=== PATIENT | female | born 1960 | race African-American/Black ===

== ENCOUNTER 2021-04-24 18:18 | Emergency (ER) | payer MEDICAID ==
[~2021-04-24] VITALS: Ht 170.2 cm; Wt 65.0 kg
[~2021-04-24 18:18] MED LIST: BUPR75TA8 MT; LISI2.5T47 PO
[2021-04-24 18:19] VITALS: BP 141/97
[2021-04-24] MEDS ORDERED: ONDANSETRON 4MG ODT PO ONE (18:45)
[2021-04-24] MEDS ORDERED: MORPHINE SULFATE 4 MG/ML CPJ (NOT FOR IM USE) IV STA (18:56)
[2021-04-24] MEDS ORDERED: ONDANSETRON HCL 4MG/2ML INJ IV STA (18:56)
[2021-04-24] MEDS ORDERED: SODIUM CHLORIDE 0.9% 1,000 ML IV ONE (19:00)
[2021-04-24 19:13] LABS: BASOPHILS % 0.5 % (0.0-2.0); EOSINOPHILS % 0.6 % (0.0-5.0); HEMOGLOBIN. 14.5 g/dL (12.0-16.0); LYMPHOCYTES % 40.3 % (20.0-50.0); MEAN CORPUSCULAR HEMOGLOBIN 28.8 pg (28.0-32.0); MEAN CORPUSCULAR VOLUME 85.4 fL (81.0-99.0); MEAN PLATELET VOLUME 7.6 fl (7.4-10.4); MONOCYTES % 11.2 % (2.0-8.0); NEUTROPHILS % 47.4 % (40.0-76.0); PLATELET 361 x1000/uL (130-400); RED BLOOD CELL COUNT 5.04 mill/uL (4.2-5.4); RED CELL DISTRIBUTION WIDTH 14.7 % (11.6-14.6)
[2021-04-24 19:16] LABS: CHLORIDE 108 mEq/L (98-107)
[2021-04-24 19:19] LABS: PROTHROMBIN TIME 10.9 sec (9.6-11.0)
== END 2021-04-24 20:19 | disposition left against medical advice (07) ==
LOC: ER 18:18
DX: R10.84 Generalized abdominal pain (principal); F12.10 Cannabis abuse, uncomplicated; F14.10 Cocaine abuse, uncomplicated; R11.2 Nausea with vomiting, unspecified; R19.7 Diarrhea, unspecified; R42 Dizziness and giddiness; J44.9 Chronic obstructive pulmonary disease, unspecified; I20.9 Angina pectoris, unspecified
CPT/HCPCS: 36415; 80053; 83605; 83690; 85025; 85610; 99283; J7030